=== PATIENT | male | born 1950 | race Two or more races ===

== ENCOUNTER 2024-03-30 16:50 | Inpatient (IN) | payer MEDICARE ==
[~2024-03-30] VITALS: Ht 170.2 cm; Wt 88.5 kg
[2024-03-30] MEDS ORDERED: ACETAMINOPHEN 325 MG TABLET PO PRN (17:45)
[2024-03-30 20:00] VITALS: BP 155/63; PULSE 60; RESP 18; TEMP 98.9; O2SAT 98
[2024-03-30] MEDS: ALBUTEROL SULFATE 2.5 MG/0.5 ML NEB SOLUTION NEB SCH (20:00)
[2024-03-30] MEDS: IPRATROPIUM BROMIDE 0.5 MG/2.5 ML NEB SOLUTION NEB SCH (20:00)
[2024-03-30] MEDS: ATORVASTATIN CALCIUM 40 MG TABLET PO SCH (20:52)
[2024-03-30 21:00] VITALS: BP 148/72; PULSE 63
[2024-03-30 22:12] VITALS: O2SAT 0
[2024-03-31] VITALS (10 sets, daily range): BP systolic 140–156; BP diastolic 68–78; PULSE 55–69; RESP 18–20; TEMP 98.3–98.7; O2SAT 94–99
[2024-03-31] MEDS: INFLUENZA VIRUS VACCINE TVS (6MO+) 2024-25/PF 45 MCG/0.5 ML SYRINGE IM. ONE (00:30)
[2024-03-31 07:07] LABS: EOSINOPHILS % (AUTO) 1.5 % (1.0-6.0); HEMATOCRIT 36.6 % (41-53); HEMOGLOBIN 12.6 g/dL (13.5-17.5); LYMPHOCYTES # (AUTO) 1.1 K/uL (1.0-4.8); LYMPHOCYTES % (AUTO) 17.9 % (22.0-44.0); MEAN CORPUSCULAR HEMOGLOBIN 31.6 pg (26.0-34.0); MEAN CORPUSCULAR HGB CONC 34.5 G/dL (31.0-37.0); MEAN CORPUSCULAR VOLUME 92 fL (80-100); MONOCYTES # (AUTO) 0.7 K/uL (0.1-1.0); MONOCYTES % (AUTO) 11.3 % (2.0-9.0); NEUTROPHILS % (AUTO) 68.3 % (40.0-70.0); PLATELET COUNT (AUTO) 163 K/uL (150-450); RED CELL DISTRIBUTION WIDTH 13.9 % (11.5-14.5); WHITE BLOOD COUNT (AUTO) 5.9 K/uL (4.5-11.0)
[2024-03-31 07:19] LABS: ALANINE AMINOTRANSFERASE 18 U/L (12-78); ALBUMIN 3.1 g/dL (3.4-5.0); ALKALINE PHOSPHATASE 58 U/L (46-116); ANION GAP 2 mmol/L (8-16); ASPARTATE AMINOTRANSFERASE 16 U/L (15-37); BILIRUBIN,TOTAL 0.8 mg/dL (0.1-1.0); CALCIUM, TOTAL 8.4 mg/dL (8.8-10.5); CARBON DIOXIDE 30 mmol/L (22-29); CHLORIDE 101 mmol/L (98-107); CREATININE 0.93 mg/dL (0.60-1.30); GLOMERULAR FILTR. RATE CALC > 60 mL/min (>60); GLUCOSE,RANDOM 178 mg/dL (70-110); POTASSIUM 3.9 mmol/L (3.5-5.1); SODIUM SERUM 133 mmol/L (136-145); TOTAL PROTEIN, SERUM 6.8 g/dL (6.4-8.2); UREA NITROGEN, BLOOD 9 mg/dL (7-18)
[2024-03-31] MEDS: AmLODIPine BESYLATE 10 MG TABLET PO SCH (08:17)
[2024-03-31] MEDS: ASPIRIN 81 MG CHEWABLE TABLET PO SCH (08:17)
[2024-03-31] MEDS: LOSARTAN POTASSIUM 50 MG TABLET PO SCH (08:17)
[2024-03-31] MEDS: CLOPIDOGREL BISULFATE 75 MG TABLET PO SCH (08:17)
[2024-03-31] MEDS: ETHYL ALCOHOL 62% ANTISEPTIC NASAL SANITIZER 0.6 ML AMPUL NASAL SCH (09:09)
[2024-03-31 17:06] LABS: GLUCOMETER DEV NAME(LOC) 2WR.2B; GLUCOSE,POINT OF CARE 196 MG/DL (70-110)
[2024-03-31] MEDS: MELATONIN 3 MG TABLET PO PRN (20:37)
[2024-04-01] VITALS (9 sets, daily range): BP systolic 154–174; BP diastolic 54–79; PULSE 50–73; RESP 18–20; TEMP 98–99; O2SAT 97–100
[2024-04-01 06:50] LABS: GLUCOMETER DEV NAME(LOC) 2WR.1D; GLUCOSE,POINT OF CARE 198 MG/DL (70-110)
[2024-04-01] MEDS ORDERED: DEXTROSE 50%-WATER 25 GM/50 ML SYRINGE IVP PRN (09:15)
[2024-04-01] MEDS: INSULIN LISPRO 100 UNITS/ML SQ PRN (10:38)
[2024-04-01 12:47] LABS: APPEARANCE,URINE HAZY (CLEAR); BILIRUBIN,URINE NEGATIVE (NEGATIVE); COLOR,URINE YELLOW (YELLOW); GLUCOSE, URINE (UA) TRACE mg/dL (NEGATIVE); KETONES,URINE NEGATIVE (NEGATIVE); LEUKOCYTE ESTERASE ,URINE LARGE (NEGATIVE); NITRATE,URINE POSITIVE (NEGATIVE); OCCULT BLOOD,URINE NEGATIVE (NEGATIVE); PROTEIN,URINE TRACE mg/dL (NEGATIVE); SPECIFIC GRAVITIY, URINE 1.019 (1.003-1.030)
[2024-04-01 12:59] LABS: BACTERIA,URINE Many /HPF (None Seen); WBC,URINE >100 /HPF (0-5)
[2024-04-01] MEDS: CIPROFLOXACIN HCL 250 MG TABLET PO SCH (14:43)
[2024-04-01 17:25] LABS: GLUCOMETER DEV NAME(LOC) 2WR.1D; GLUCOSE,POINT OF CARE 184 MG/DL (70-110)
[2024-04-01] MEDS: LOSARTAN POTASSIUM 50 MG TABLET PO SCH (20:10)
[2024-04-02] VITALS (9 sets, daily range): BP systolic 125–159; BP diastolic 54–71; PULSE 54–68; RESP 14–18; TEMP 98.3–98.4; O2SAT 94–99
[2024-04-02] MEDS ORDERED: ASPI-1450 PO (07:31)
[2024-04-02] MEDS ORDERED: AMLO-258 PO (07:31)
[2024-04-02] MEDS ORDERED: METF-1211 PO (07:31)
[2024-04-02] MEDS ORDERED: ATOR40TA28 PO (07:31)
[2024-04-02] MEDS ORDERED: LOSA-382 PO (07:31)
[2024-04-02] MEDS ORDERED: CLOP75TA60 PO (07:31)
[2024-04-02 07:36] LABS: GLUCOMETER DEV NAME(LOC) 2WR.1D; GLUCOSE,POINT OF CARE 167 MG/DL (70-110)
[2024-04-02] MEDS ORDERED: INSU100V SQ (07:39)
[2024-04-02] MEDS ORDERED: MELA3TAB89 PO (07:43)
[2024-04-02] MEDS: MetFORMIN HCL 500 MG TABLET PO SCH (07:46)
[2024-04-02 16:55] LABS: GLUCOMETER DEV NAME(LOC) 2WR.1D; GLUCOSE,POINT OF CARE 178 MG/DL (70-110)
[2024-04-03] VITALS (8 sets, daily range): BP systolic 137–159; BP diastolic 56–72; PULSE 51–56; RESP 18–20; TEMP 97.9–98.5; O2SAT 94–98
[2024-04-03 06:41] LABS: GLUCOMETER DEV NAME(LOC) 2WR.2B; GLUCOSE,POINT OF CARE 139 MG/DL (70-110)
[2024-04-03] MEDS: MetFORMIN HCL 500 MG TABLET PO SCH (16:47)
[2024-04-03 17:05] LABS: GLUCOMETER DEV NAME(LOC) 2WR.2B; GLUCOSE,POINT OF CARE 169 MG/DL (70-110)
[2024-04-04] VITALS (10 sets, daily range): BP systolic 137–139; BP diastolic 63–65; PULSE 51–65; RESP 16–18; TEMP 98.3–98.6; O2SAT 93–98
[2024-04-04 07:26] LABS: GLUCOMETER DEV NAME(LOC) 2WR.2B; GLUCOSE,POINT OF CARE 145 MG/DL (70-110)
[2024-04-04 17:06] LABS: GLUCOMETER DEV NAME(LOC) 2WR.2B; GLUCOSE,POINT OF CARE 141 MG/DL (70-110)
[2024-04-05 03:42] VITALS: O2SAT 97
[2024-04-05] MEDS ORDERED: ALBU2.5V39 NEB (04:45)
[2024-04-05] MEDS ORDERED: IPRA0.2S49 NEB (04:46)
[2024-04-05] MEDS ORDERED: CIPR250T6 PO ×2 (04:51→10:08)
[2024-04-05 07:05] LABS: GLUCOMETER DEV NAME(LOC) 2WR.2B; GLUCOSE,POINT OF CARE 132 MG/DL (70-110)
[2024-04-05 07:30] LABS: BASOPHILS % (AUTO) 1.3 % (0.0-2.0); EOSINOPHILS % (AUTO) 1.2 % (1.0-6.0); HEMATOCRIT 38.1 % (41-53); HEMOGLOBIN 13.1 g/dL (13.5-17.5); LYMPHOCYTES # (AUTO) 1.6 K/uL (1.0-4.8); LYMPHOCYTES % (AUTO) 18.7 % (22.0-44.0); MEAN CORPUSCULAR HEMOGLOBIN 31.6 pg (26.0-34.0); MEAN CORPUSCULAR HGB CONC 34.3 G/dL (31.0-37.0); MEAN CORPUSCULAR VOLUME 92 fL (80-100); MONOCYTES # (AUTO) 0.7 K/uL (0.1-1.0); NEUTROPHILS # (AUTO) 6.1 K/uL (1.8-7.7); NEUTROPHILS % (AUTO) 70.8 % (40.0-70.0); PLATELET COUNT (AUTO) 203 K/uL (150-450); RED BLOOD CELL COUNT(AUTO) 4.14 MIL/uL (4.50-5.90); WHITE BLOOD COUNT (AUTO) 8.6 K/uL (4.5-11.0)
[2024-04-05 07:39] LABS: ANION GAP 8 mmol/L (8-16); CALCIUM, TOTAL 8.5 mg/dL (8.8-10.5); CARBON DIOXIDE 27 mmol/L (22-29); CHLORIDE 98 mmol/L (98-107); CREATININE 0.86 mg/dL (0.60-1.30); GLOMERULAR FILTR. RATE CALC > 60 mL/min (>60); GLUCOSE,RANDOM 131 mg/dL (70-110); POTASSIUM 4.2 mmol/L (3.5-5.1); SODIUM SERUM 133 mmol/L (136-145); UREA NITROGEN, BLOOD 12 mg/dL (7-18)
[2024-04-05 08:05] VITALS: BP 146/64; PULSE 68; RESP 18; TEMP 98; O2SAT 97
[2024-04-05] MEDS ORDERED: METF-1211 PO (10:08)
[2024-04-05] MEDS ORDERED: LOSA-382 PO (10:08)
[2024-04-05] MEDS ORDERED: INSU100V SQ (10:08)
[2024-04-05] MEDS ORDERED: ASPI-1450 PO (10:08)
[2024-04-05] MEDS ORDERED: CLOP75TA60 PO (10:08)
[2024-04-05] MEDS ORDERED: AMLO-258 PO (10:08)
[2024-04-05] MEDS ORDERED: ATOR40TA71 PO (10:08)
[2024-04-05 11:47] VITALS: O2SAT 98
== END 2024-04-05 11:00 | disposition home or self-care (01) | DRG 56 ==
LOC: 2WR 16:50
PROVIDERS: ADMIT Physical Medicine & Rehabilitation; ATTEND Physical Medicine & Rehabilitation
DX: G81.91 Hemiplegia, unspecified affecting right dominant side (principal); I63.29 Cerebral infarction due to unspecified occlusion or stenosis of other precerebral arteries; E46 Unspecified protein-calorie malnutrition; E87.1 Hypo-osmolality and hyponatremia; N39.0 Urinary tract infection, site not specified; Z68.30 Body mass index [BMI] 30.0-30.9, adult; R27.0 Ataxia, unspecified; R45.87 Impulsiveness; R41.89 Other symptoms and signs involving cognitive functions and awareness; Z74.09 Other reduced mobility; D64.9 Anemia, unspecified; I10 Essential (primary) hypertension; E11.51 Type 2 diabetes mellitus with diabetic peripheral angiopathy without gangrene; E78.5 Hyperlipidemia, unspecified; R47.1 Dysarthria and anarthria; E66.9 Obesity, unspecified; R35.1 Nocturia; Z82.3 Family history of stroke; Z72.0 Tobacco use; Z83.3 Family history of diabetes mellitus; Z86.73 Personal history of transient ischemic attack (TIA), and cerebral infarction without residual deficits; Z82.49 Family history of ischemic heart disease and other diseases of the circulatory system; Z91.81 History of falling
CPT/HCPCS: 80048; 80053; 81001; 82962; 85025; 87077; 87081; 87086; 87186; 92507; 92523; 93970; 94640; 97110; 97112; 97116; 97163; 97167; 97530; 97535